=== PATIENT | female | born 1940 | race Caucasian/White ===

== ENCOUNTER → 2016-10-16 | Outpatient (CLI) | payer OTHER ==
[~2016-10-16] MED LIST: ASPIRIN81 M1; CALCIUM500 MG; FOLIC ACID800 MCG PO; MULTIVITAMIN1 UDCAP; SIMVASTATIN20 MG; TOPROL XL 50 MG50 MG
--- NOTE | ~2016-10-16 | US85 ---
[facility] A Service of [facility] RADIOLOGY TEXT RESULTS PATIENT: ZAHRA WELLS LOCATION: CNIV : 39 UNIT #: [id number] AGE: [address]: Sonia Resendez MD SEX: F ORDER DR: [id number] [facility] [address] [place], [place] [address] [id number] MR#: [id number] Acc #: [id number] NAME: ZAHRA WELLS : 1940 SEX: F STUDY DATE/TIME: 10/16/2016 14:42 UNIT: CNIV ROOM: STUDY DESCRIPTION: [facility] Attending Physician: Sonia Resendez M.D. Referring Physician: Sonia Resendez M.D. Ordering Physician: Sonia Resendez M.D. Primary Care Physician: Sonia Resendez M.D. MEDICAL IMAGING REPORT This report is preliminary unless electronic signature is present EXAM Right lower extremity venous duplex, 10/16/2016 HISTORY Right knee pain for 4 days with right lower extremity edema. Evaluate for deep vein thrombosis. TECHNIQUE Venous ultrasound examination of the right lower extremity was performed using grayscale, spectral Doppler and color flow Doppler imaging. FINDINGS The examination is negative. There is no evidence of right lower extremity deep venous thrombus from the groin to the lower calf. Visualized greater saphenous vein is also patent. IMPRESSION Negative examination. No evidence of right lower extremity deep venous thrombosis. Dictated by... Melvin Kovacs M.D. THIS IS AN ELECTRONICALLY VERIFIED REPORT Melvin Kovacs M.D. at 10/17/2016 2:11 PM NIAY/be TD: 10/16/2016 23:08 JOB #: [id number] MEDICAL IMAGING REPORT [facility] A Service of [facility] RADIOLOGY TEXT RESULTS PATIENT: ZAHRA WELLS LOCATION: CNIV : 39 UNIT #: [id number] AGE: [address]: Sonia Resendez MD SEX: F ORDER DR: Page 1 of 1 COPY
== END | disposition home or self-care (01) ==
LOC: CNIV 14:25
DX: M79.89 Other specified soft tissue disorders (principal)
CPT/HCPCS: 93971